=== PATIENT | male | born 1955 | race Caucasian/White ===

== ENCOUNTER 2016-08-01 20:46 | Emergency (ER) | payer MEDICAID ==
[~2016-08-01] VITALS: Ht 188 cm; Wt 88.7 kg
[2016-08-01] MEDS ORDERED: ALBUTEROL/IPRATROPIUM 2.5MG/0.5MG, 3 ML NPPB ONE (21:00)
[2016-08-01] MEDS ORDERED: ALBUTEROL/IPRATROPIUM 2.5MG/0.5MG, 3 ML ONE (21:08)
[2016-08-01 21:37] LABS: BLOOD UREA NITROGEN 11 mg/dL (7-18)
[2016-08-01 21:44] LABS: IS PT STATUS REG ER OR PRE ER? NO
[2016-08-01 22:57] VITALS: BP 105/70
== END 2016-08-01 23:02 | disposition home or self-care (01) ==
LOC: ED 22:50
DX: J20.8 Acute bronchitis due to other specified organisms (principal); B96.89 Other specified bacterial agents as the cause of diseases classified elsewhere; J44.0 Chronic obstructive pulmonary disease with (acute) lower respiratory infection; I10 Essential (primary) hypertension; J98.01 Acute bronchospasm
CPT/HCPCS: 36415; 71010; 80048; 82040; 83880; 84484; 85025; 93005; 94640; J7620; J7512

== ENCOUNTER 2016-09-16 09:34 | Emergency (ER) | payer MEDICAID ==
[~2016-09-16] VITALS: Ht 185.4 cm; Wt 89.9 kg
[2016-09-16] MEDS ORDERED: SODIUM CHLORIDE FLUSH 10ML SYR IVF ONE (10:00)
[2016-09-16 10:41] LABS: BLOOD UREA NITROGEN 26 mg/dL (7-18)
[2016-09-16 10:47] LABS: IS PT STATUS REG ER OR PRE ER? YES
[2016-09-16 10:58] LABS: DIFF TOTAL CELLS COUNTED 100 CELL DIFF
[2016-09-16 11:20] LABS: VERIFY COUNTS? YES
[2016-09-16 11:21] LABS: ANISOCYTOSIS 1+
[2016-09-16 11:22] LABS: LARGE PLATELETS 1+
[2016-09-16 12:02] VITALS: BP 102/65
== END 2016-09-16 12:20 | disposition home or self-care (01) ==
LOC: ED 11:32
DX: S80.812A Abrasion, left lower leg, initial encounter (principal); I50.9 Heart failure, unspecified; D59.9 Acquired hemolytic anemia, unspecified; N28.9 Disorder of kidney and ureter, unspecified; W22.8XXA Striking against or struck by other objects, initial encounter; Y93.01 Activity, walking, marching and hiking; Y92.89 Other specified places as the place of occurrence of the external cause; Y99.8 Other external cause status
CPT/HCPCS: 36415; 71020; 80048; 82040; 83880; 84484; 85025; 93005; 99285

== ENCOUNTER 2016-09-24 23:12 | Emergency (ER) | payer MEDICAID ==
[~2016-09-24] VITALS: Ht 185.4 cm; Wt 94.2 kg
[2016-09-24 23:14] VITALS: BP 115/73
[2016-09-24] MEDS ORDERED: GABA300C10 PO (23:22)
[2016-09-24] MEDS ORDERED: ATEN25TA PO (23:22)
[2016-09-24] MEDS ORDERED: ALBU8.5H3 INH (23:22)
== END 2016-09-25 01:09 | disposition home or self-care (01) ==
LOC: ED 23:59
DX: L03.116 Cellulitis of left lower limb (principal); J44.9 Chronic obstructive pulmonary disease, unspecified; I10 Essential (primary) hypertension; F17.200 Nicotine dependence, unspecified, uncomplicated
CPT/HCPCS: 99283

== ENCOUNTER 2016-10-02 23:54 | Inpatient (IN) | payer MEDICAID ==
[~2016-10-02] VITALS: Ht 188 cm; Wt 89.9 kg
[~2016-10-02 23:54] MED LIST: ALBU8.5H8 INH; ATEN25TA PO; GABA300C10 PO
[2016-10-03] VITALS (9 sets, daily range): BP systolic 91–160; BP diastolic 59–144
[2016-10-03] MEDS ORDERED: ONDANSETRON 2MG/ML, 2ML IVPush ONE (01:00)
[2016-10-03 01:18] LABS: HEMATOCRIT 27.2 % (39.2-51.8); HEMOGLOBIN 8.9 g/dL (13.7-18.0); WHITE BLOOD COUNT 4.2 x10^3/uL (3.4-10)
[2016-10-03 01:47] LABS: ASPARTATE AMINO TRANSFERASE 98 U/L (15-37); BLOOD UREA NITROGEN 21 mg/dL (7-18)
[2016-10-03] MEDS ORDERED: FUROSEMIDE 40 MG/4 ML ONE (01:52)
[2016-10-03 01:53] LABS: IS PT STATUS REG ER OR PRE ER? YES
[2016-10-03] MEDS ORDERED: FUROSEMIDE 40 MG/4 ML IV ONE (02:00)
[2016-10-03] MEDS: MORPHINE SULFATE 4 MG/ML, 1ML IVPush PRN ×2 (02:48→02:57)
[2016-10-03] MEDS ORDERED: MORPHINE SULFATE 4 MG/ML, 1ML ONE ×2 (02:52→08:26)
[2016-10-03] MEDS ORDERED: ONDANSETRON 2MG/ML, 2ML ONE (02:52)
[2016-10-03] MEDS ORDERED: BISACODYL 10 MG SUPP PR PRN ×2 (03:00→13:00)
[2016-10-03] MEDS ORDERED: POLYETHYLENE GLYCOL 17 GM PACKET PO PRN (03:00)
[2016-10-03] MEDS: NICOTINE 21 MG/24 HR PATCH.TD24 TD SCH (03:00)
[2016-10-03] MEDS ORDERED: DOCUSATE 100 MG CAPSULE PO PRN (03:00)
[2016-10-03] MEDS ORDERED: AMPICILLIN/SULBACTAM 3 GM in SODIUM CHLORIDE 0.9% 100 ML IV SCH (03:00)
[2016-10-03] MEDS ORDERED: PROMETHAZINE 25 MG/ML, 1ML IM PRN (03:00)
[2016-10-03] MEDS: ALBUMIN HUMAN 25% 100 ML IV SCH ×3 (05:12→20:19)
[2016-10-03] MEDS ORDERED: OMNIPAQUE 350 MG/ML, 100ML BOTTLE ONE (06:31)
[2016-10-03] MEDS: ONDANSETRON 2MG/ML, 2ML IVPush PRN (08:30)
[2016-10-03] MEDS: morphine SULFATE 10 MG/ML, 1ML IVPush PRN ×2 (08:30→20:45)
[2016-10-03] MEDS: ATENOLOL 25 MG TABLET PO SCH ×2 (09:00→20:35)
[2016-10-03] MEDS: SPIRONOLACTONE 25 MG TABLET PO SCH (09:00)
[2016-10-03] MEDS ORDERED: PANTOPRAZOLE 80 MG in SODIUM CHLORIDE 0.9% 50 ML IV ONE (09:00)
[2016-10-03] MEDS: GABAPENTIN 300 MG CAPSULE PO SCH ×3 (09:00→20:34)
[2016-10-03] MEDS: FUROSEMIDE 40 MG TABLET PO SCH (09:00)
[2016-10-03] MEDS ORDERED: PANTOPRAZOLE 80 MG in SODIUM CHLORIDE 0.9% 100 ML IV SCH (09:00)
[2016-10-03] MEDS ORDERED: PHARMACY MAY ADJ FOR RENAL FX MC PRN (09:30)
[2016-10-03] MEDS: OCTREOTIDE 500 MCG in SODIUM CHLORIDE 0.9% 249 ML IV SCH ×2 (10:47→19:40)
[2016-10-03 10:58] LABS: HEMATOCRIT 23.5 % (39.2-51.8); HEMOGLOBIN 7.6 g/dL (13.7-18.0)
[2016-10-03] MEDS ORDERED: FENTANYL PF 100 MCG/2ML ONE (11:59)
[2016-10-03] MEDS ORDERED: MIDAZOLAM 1 MG/ML, 5ML ONE (12:00)
[2016-10-03] MEDS ORDERED: PROPOFOL 100 ML IV PRN (12:34)
[2016-10-03] MEDS ORDERED: NOREPINEPHRINE 4 MG in SODIUM CHLORIDE 0.9% 246 ML IV PRN (12:34)
[2016-10-03] MEDS ORDERED: FENTANYL PF 100 MCG/2ML IVPush PRN (13:00)
[2016-10-03] MEDS ORDERED: PHARMACY MAY ADJ FOR RENAL FX MC SCH (13:00)
[2016-10-03] MEDS ORDERED: SENNA/DOCUSATE TABLET NG PRN (13:00)
[2016-10-03] MEDS ORDERED: SENNOSIDES 8.8 MG/5 ML ORAL SOL NG PRN (13:00)
[2016-10-03] MEDS ORDERED: LIDOCAINE-MPF 1%, 2ML ENDO PRN (13:00)
[2016-10-03] MEDS ORDERED: ALBUTEROL/IPRATROPIUM 2.5MG/0.5MG, 3 ML INLINE SCH (13:00)
[2016-10-03] MEDS ORDERED: LACTULOSE 20 GM/30 ML UDC NG PRN (13:00)
[2016-10-03] MEDS ORDERED: SODIUM CHLORIDE 0.9% 1,000ML IVBOLUS ONE (13:00)
[2016-10-03] MEDS: PIPERACILLIN/TAZO/PMX 3.375GM 50 ML IV SCH ×3 (13:26→21:00)
[2016-10-03] MEDS ORDERED: METOCLOPRAMIDE 5 MG/ML, 2ML IVPush PRN (13:30)
[2016-10-03 13:34] LABS: ABG COLLECTION SITE RIGHT BRACHIAL; FIO2 50 %
[2016-10-03] MEDS ORDERED: LIDOCAINE 1%, 20ML ONE (13:50)
[2016-10-03 13:56] LABS: FERRITIN 34.1 ng/mL (26-388)
[2016-10-03] MEDS: LINEZOLID PMX 600MG/300ML 300 ML IV SCH ×2 (14:33→22:00)
[2016-10-03 14:51] LABS: CYTOLOGY BODY FLUID RECD INTO PATHOLOGY; CYTOLOGY BODY FLUID SOURCE PERITONEAL FLUID
[2016-10-03] MEDS ORDERED: METOCLOPRAMIDE 5 MG/ML, 2ML IVPush SCH (15:00)
[2016-10-03] MEDS: METOCLOPRAMIDE 5 MG/ML, 2ML IVPush SCH ×2 (16:33→20:45)
[2016-10-03 17:03] LABS: DAU SCREEN DISCLAIMER
[2016-10-03 17:34] LABS: POTASSIUM,URINE RANDOM 42 mmol/L
[2016-10-03 19:20] LABS: HEMATOCRIT 24.3 % (39.2-51.8); HEMOGLOBIN 7.9 g/dL (13.7-18.0); WHITE BLOOD COUNT 3.5 x10^3/uL (3.4-10)
[2016-10-03] MEDS: PANTOPRAZOLE 80 MG in SODIUM CHLORIDE 0.9% 100 ML IV SCH (20:22)
[2016-10-03 22:22] LABS: HEMATOCRIT 24.1 % (39.2-51.8); HEMOGLOBIN 7.9 g/dL (13.7-18.0)
[2016-10-04] MEDS: morphine SULFATE 10 MG/ML, 1ML IVPush PRN ×5 (02:21→17:43)
[2016-10-04] MEDS: NICOTINE 21 MG/24 HR PATCH.TD24 TD SCH (02:23)
[2016-10-04] MEDS: PIPERACILLIN/TAZO/PMX 3.375GM 50 ML IV SCH ×4 (03:55→21:47)
[2016-10-04 04:02] VITALS: BP 96/60
[2016-10-04] MEDS: OCTREOTIDE 500 MCG in SODIUM CHLORIDE 0.9% 249 ML IV SCH ×2 (04:16→13:31)
[2016-10-04 04:30] LABS: HEMOGLOBIN 7.5 g/dL (13.7-18.0); WHITE BLOOD COUNT 2.2 x10^3/uL (3.4-10)
[2016-10-04 04:37] LABS: BLOOD UREA NITROGEN 22 mg/dL (7-18)
[2016-10-04 04:40] LABS: ABG COLLECTION SITE NOT DOCUMENTED
[2016-10-04 04:54] LABS: HEMATOCRIT 22.3 % (39.2-51.8)
[2016-10-04 05:04] LABS: ASPARTATE AMINO TRANSFERASE 59 U/L (15-37); FERRITIN 34.3 ng/mL (26-388); TOTAL IRON BINDING CAPACITY 238 mcg/dL (250-450)
[2016-10-04 05:11] LABS: HIV 1&2 ANTIBODY SCREEN Nonreactive (Nonreactive); HIV-1 p24 ANTIGEN Nonreactive (Nonreactive)
[2016-10-04] MEDS: METOCLOPRAMIDE 5 MG/ML, 2ML IVPush SCH ×4 (06:40→20:41)
[2016-10-04] MEDS: SPIRONOLACTONE 25 MG TABLET PO SCH (07:40)
[2016-10-04] MEDS: GABAPENTIN 300 MG CAPSULE PO SCH ×3 (07:41→20:42)
[2016-10-04] MEDS: FUROSEMIDE 40 MG TABLET PO SCH (07:41)
[2016-10-04] MEDS: ATENOLOL 25 MG TABLET PO SCH ×2 (07:42→20:44)
[2016-10-04] MEDS ORDERED: SUCCINYLCHOLINE 20 MG/ML, 10ML ONE (08:00)
[2016-10-04] MEDS ORDERED: MIDAZOLAM 1 MG/ML, 5ML ONE (08:00)
[2016-10-04] MEDS ORDERED: PROPOFOL 10 MG/ML, 100ML IV ONE (08:00)
[2016-10-04] MEDS: PANTOPRAZOLE 80 MG in SODIUM CHLORIDE 0.9% 100 ML IV SCH ×2 (08:46→17:25)
[2016-10-04] MEDS ORDERED: MAGNESIUM SULFATE PMX 2GM/50ML 50 ML IV ONE (09:00)
[2016-10-04 09:41] VITALS: BP 98/61
[2016-10-04 09:57] VITALS: BP 108/58
[2016-10-04] MEDS: LINEZOLID PMX 600MG/300ML 300 ML IV SCH ×2 (10:24→21:02)
[2016-10-04 11:29] VITALS: BP 105/66
[2016-10-04 14:41] LABS: HEMOGLOBIN 7.5 g/dL (13.7-18.0)
[2016-10-04 14:45] LABS: HEMATOCRIT 22.4 % (39.2-51.8); WHITE BLOOD COUNT 1.5 x10^3/uL (3.4-10)
[2016-10-04 15:14] LABS: DIFF TOTAL CELLS COUNTED 100 CELL DIFF
[2016-10-04 15:18] LABS: ANISOCYTOSIS 1+
[2016-10-04 15:19] LABS: VERIFY COUNTS? YES
[2016-10-04] MEDS ORDERED: IRON DEXTRAN IV PER PHARMACY IV ONE (18:00)
[2016-10-04] MEDS ORDERED: EPINEPHRINE 1 MG/ML, 1ML IV PRN (18:00)
[2016-10-04] MEDS ORDERED: IRON DEXTRAN COMPLEX 25 MG in SODIUM CHLORIDE 0.9% 50 ML IV ONE (18:30)
[2016-10-04] MEDS ORDERED: IRON DEXTRAN COMPLEX IV ONE (20:00)
[2016-10-04] MEDS ORDERED: SODIUM CHLORIDE 0.9% IV ONE (20:00)
[2016-10-04] MEDS: OXYcodone IR 5MG TABLET PO PRN (20:42)
[2016-10-04 21:12] LABS: HEMOGLOBIN 7.8 g/dL (13.7-18.0)
[2016-10-04 21:39] VITALS: BP 104/65
[2016-10-05] MEDS: OCTREOTIDE 500 MCG in SODIUM CHLORIDE 0.9% 249 ML IV SCH ×2 (00:55→12:09)
[2016-10-05] MEDS: OXYcodone IR 5MG TABLET PO PRN ×5 (01:05→20:31)
[2016-10-05 01:06] VITALS: BP 106/71
[2016-10-05] MEDS: NICOTINE 21 MG/24 HR PATCH.TD24 TD SCH (03:00)
[2016-10-05] MEDS: PIPERACILLIN/TAZO/PMX 3.375GM 50 ML IV SCH ×3 (04:07→18:14)
[2016-10-05] MEDS: PANTOPRAZOLE 80 MG in SODIUM CHLORIDE 0.9% 100 ML IV SCH (04:07)
[2016-10-05 05:12] LABS: HEMATOCRIT 23.9 % (39.2-51.8); WHITE BLOOD COUNT 2.3 x10^3/uL (3.4-10)
[2016-10-05 05:20] LABS: BLOOD UREA NITROGEN 15 mg/dL (7-18)
[2016-10-05 05:43] LABS: DIFF TOTAL CELLS COUNTED 100 CELL DIFF
[2016-10-05 05:45] LABS: ANISOCYTOSIS 1+; LARGE PLATELETS 1+; VERIFY COUNTS? YES
[2016-10-05 05:46] LABS: POLYCHROMASIA 1+
[2016-10-05 07:24] VITALS: BP 119/77
[2016-10-05] MEDS: FUROSEMIDE 40 MG TABLET PO SCH (08:49)
[2016-10-05] MEDS: GABAPENTIN 300 MG CAPSULE PO SCH ×3 (08:49→20:31)
[2016-10-05] MEDS: ATENOLOL 25 MG TABLET PO SCH (08:49)
[2016-10-05] MEDS: SPIRONOLACTONE 25 MG TABLET PO SCH (08:49)
[2016-10-05] MEDS: LINEZOLID PMX 600MG/300ML 300 ML IV SCH ×2 (09:43→20:39)
[2016-10-05] MEDS: PANTOPRAZOLE 40 MG IV IVPush SCH (12:08)
[2016-10-05 14:21] VITALS: BP 105/67
[2016-10-05 18:37] VITALS: BP 99/63
[2016-10-06] MEDS: PANTOPRAZOLE 40 MG IV IVPush SCH (00:19)
[2016-10-06] MEDS: PIPERACILLIN/TAZO/PMX 3.375GM 50 ML IV SCH ×4 (00:19→22:16)
[2016-10-06 00:58] VITALS: BP 106/69
[2016-10-06] MEDS: OXYcodone IR 5MG TABLET PO PRN ×5 (01:06→22:17)
[2016-10-06] MEDS: OCTREOTIDE 500 MCG in SODIUM CHLORIDE 0.9% 249 ML IV SCH ×2 (02:27→14:59)
[2016-10-06] MEDS: NICOTINE 21 MG/24 HR PATCH.TD24 TD SCH (02:27)
[2016-10-06 04:41] LABS: BLOOD UREA NITROGEN 11 mg/dL (7-18)
[2016-10-06 05:29] LABS: HEMATOCRIT 24.1 % (39.2-51.8); HEMOGLOBIN 8.1 g/dL (13.7-18.0)
[2016-10-06 05:34] LABS: WHITE BLOOD COUNT 1.9 x10^3/uL (3.4-10)
[2016-10-06 06:00] LABS: DIFF TOTAL CELLS COUNTED 100 CELL DIFF
[2016-10-06 06:04] LABS: ANISOCYTOSIS 1+; POLYCHROMASIA 1+; VERIFY COUNTS? YES
[2016-10-06 07:11] VITALS: BP 106/70
[2016-10-06] MEDS ORDERED: MAGNESIUM SULFATE PMX 2GM/50ML 50 ML IV ONE ×2 (09:00→20:00)
[2016-10-06] MEDS ORDERED: GADOBUTROL 10 MMOL/10 ML VIAL ONE (10:25)
[2016-10-06] MEDS: POTASSIUM ACID PHOSPHATE 500 MG TABLET.SOL PO SCH ×3 (10:57→22:16)
[2016-10-06] MEDS: SPIRONOLACTONE 100 MG TABLET PO SCH (10:57)
[2016-10-06] MEDS: GABAPENTIN 300 MG CAPSULE PO SCH ×3 (10:58→22:16)
[2016-10-06] MEDS: FUROSEMIDE 40 MG TABLET PO SCH (10:58)
[2016-10-06] MEDS: PANTOPROZOLE 40MG TABLET PO SCH ×2 (11:27→22:17)
[2016-10-06 12:56] VITALS: BP 103/63
[2016-10-06 18:45] VITALS: BP 109/66
[2016-10-07 01:44] VITALS: BP 109/66
[2016-10-07] MEDS: NICOTINE 21 MG/24 HR PATCH.TD24 TD SCH (02:40)
[2016-10-07] MEDS: PIPERACILLIN/TAZO/PMX 3.375GM 50 ML IV SCH ×4 (04:12→21:34)
[2016-10-07] MEDS: OXYcodone IR 5MG TABLET PO PRN ×4 (05:15→21:37)
[2016-10-07 05:45] LABS: BLOOD UREA NITROGEN 11 mg/dL (7-18)
[2016-10-07 05:50] LABS: HEMATOCRIT 24.6 % (39.2-51.8)
[2016-10-07 05:57] LABS: WHITE BLOOD COUNT 1.6 x10^3/uL (3.4-10)
[2016-10-07 06:27] LABS: DIFF TOTAL CELLS COUNTED 100 CELL DIFF
[2016-10-07 06:45] LABS: ANISOCYTOSIS 1+; VERIFY COUNTS? YES
[2016-10-07 08:42] VITALS: BP 111/82
[2016-10-07] MEDS: GABAPENTIN 300 MG CAPSULE PO SCH ×3 (09:36→21:33)
[2016-10-07] MEDS: SPIRONOLACTONE 100 MG TABLET PO SCH (09:36)
[2016-10-07] MEDS: PANTOPROZOLE 40MG TABLET PO SCH ×2 (09:36→21:33)
[2016-10-07] MEDS: POTASSIUM ACID PHOSPHATE 500 MG TABLET.SOL PO SCH (09:36)
[2016-10-07] MEDS: FUROSEMIDE 40 MG TABLET PO SCH (09:37)
[2016-10-07] MEDS: POTASSIUM CHLORIDE 20 MEQ TAB.ER.PRT PO SCH ×2 (11:00→16:40)
[2016-10-07 16:28] VITALS: BP 129/83
[2016-10-07 20:00] VITALS: BP 124/79
[2016-10-08 02:00] VITALS: BP 128/80
[2016-10-08] MEDS: NICOTINE 21 MG/24 HR PATCH.TD24 TD SCH (03:00)
[2016-10-08 03:49] LABS: HEMATOCRIT 25.9 % (39.2-51.8); HEMOGLOBIN 8.4 g/dL (13.7-18.0); WHITE BLOOD COUNT 2.3 x10^3/uL (3.4-10)
[2016-10-08 04:00] LABS: BLOOD UREA NITROGEN 11 mg/dL (7-18)
[2016-10-08] MEDS: PIPERACILLIN/TAZO/PMX 3.375GM 50 ML IV SCH ×4 (05:22→22:24)
[2016-10-08] MEDS: OXYcodone IR 5MG TABLET PO PRN ×3 (05:23→22:26)
[2016-10-08 08:00] VITALS: BP 137/89
[2016-10-08] MEDS: SPIRONOLACTONE 100 MG TABLET PO SCH (09:18)
[2016-10-08] MEDS: POTASSIUM CHLORIDE 20 MEQ TAB.ER.PRT PO SCH ×2 (09:18→16:36)
[2016-10-08] MEDS: FUROSEMIDE 40 MG TABLET PO SCH (09:18)
[2016-10-08] MEDS: PANTOPROZOLE 40MG TABLET PO SCH ×2 (09:18→20:45)
[2016-10-08] MEDS: GABAPENTIN 300 MG CAPSULE PO SCH ×3 (09:18→20:45)
[2016-10-08 14:15] VITALS: BP 117/86
[2016-10-08] MEDS: ONDANSETRON 2MG/ML, 2ML IVPush PRN (16:36)
[2016-10-08 19:21] VITALS: BP 108/76
[2016-10-08 19:32] VITALS: BP 112/77
[2016-10-09] MEDS: NICOTINE 21 MG/24 HR PATCH.TD24 TD SCH (03:00)
[2016-10-09 04:00] VITALS: BP 117/83
[2016-10-09] MEDS: PIPERACILLIN/TAZO/PMX 3.375GM 50 ML IV SCH ×4 (04:41→23:04)
[2016-10-09] MEDS: OXYcodone IR 5MG TABLET PO PRN ×4 (04:43→21:23)
[2016-10-09 06:11] LABS: HEMATOCRIT 23.6 % (39.2-51.8); HEMOGLOBIN 7.9 g/dL (13.7-18.0); WHITE BLOOD COUNT 6.9 x10^3/uL (3.4-10)
[2016-10-09 06:20] LABS: BLOOD UREA NITROGEN 18 mg/dL (7-18)
[2016-10-09 07:11] VITALS: BP 113/74
[2016-10-09] MEDS: GABAPENTIN 300 MG CAPSULE PO SCH ×3 (08:13→21:00)
[2016-10-09] MEDS: PANTOPROZOLE 40MG TABLET PO SCH ×2 (08:13→21:03)
[2016-10-09] MEDS: FUROSEMIDE 40 MG TABLET PO SCH (08:13)
[2016-10-09] MEDS: SPIRONOLACTONE 100 MG TABLET PO SCH (08:13)
[2016-10-09] MEDS: POTASSIUM CHLORIDE 20 MEQ TAB.ER.PRT PO SCH ×2 (08:13→17:22)
[2016-10-09 13:53] VITALS: BP 114/74
[2016-10-09] MEDS ORDERED: ALBUMIN HUMAN 25% 100 ML IV SCH (14:00)
[2016-10-09] MEDS ORDERED: LIDOCAINE 1%, 20ML ONE (15:43)
[2016-10-09 17:41] LABS: CYTOLOGY BODY FLUID RECD INTO PATHOLOGY; CYTOLOGY BODY FLUID SOURCE PERITONEAL FLUID
[2016-10-09 20:20] VITALS: BP 135/72
[2016-10-09] MEDS: ALBUMIN HUMAN 25% 100 ML IV SCH (23:00)
[2016-10-10] VITALS (11 sets, daily range): BP systolic 94–111; BP diastolic 53–74
[2016-10-10] MEDS: NICOTINE 21 MG/24 HR PATCH.TD24 TD SCH (00:29)
[2016-10-10] MEDS: OXYcodone IR 5MG TABLET PO PRN ×4 (02:06→20:01)
[2016-10-10] MEDS: PIPERACILLIN/TAZO/PMX 3.375GM 50 ML IV SCH ×3 (05:29→21:41)
[2016-10-10] MEDS: ALBUMIN HUMAN 25% 100 ML IV SCH ×3 (05:30→17:05)
[2016-10-10 05:40] LABS: BLOOD UREA NITROGEN 26 mg/dL (7-18)
[2016-10-10 06:02] LABS: HEMATOCRIT 15.5 % (39.2-51.8); HEMOGLOBIN 5.2 g/dL (13.7-18.0); WHITE BLOOD COUNT 4.3 x10^3/uL (3.4-10)
[2016-10-10] MEDS: FUROSEMIDE 40 MG TABLET PO SCH (08:31)
[2016-10-10] MEDS: PANTOPROZOLE 40MG TABLET PO SCH ×2 (08:31→20:01)
[2016-10-10] MEDS: SPIRONOLACTONE 100 MG TABLET PO SCH (08:31)
[2016-10-10] MEDS: POTASSIUM CHLORIDE 20 MEQ TAB.ER.PRT PO SCH ×2 (08:31→17:05)
[2016-10-10] MEDS: GABAPENTIN 300 MG CAPSULE PO SCH ×4 (08:31→20:02)
[2016-10-10] MEDS ORDERED: MAGNESIUM SULFATE PMX 2GM/50ML 50 ML IV ONE ×2 (10:30)
[2016-10-10 23:39] LABS: HEMATOCRIT 21.8 % (39.2-51.8)
[2016-10-11] VITALS (12 sets, daily range): BP systolic 103–123; BP diastolic 61–78
[2016-10-11] MEDS: ALBUMIN HUMAN 25% 100 ML IV SCH (00:09)
[2016-10-11] MEDS: OXYcodone IR 5MG TABLET PO PRN ×6 (00:19→22:06)
[2016-10-11] MEDS: NICOTINE 21 MG/24 HR PATCH.TD24 TD SCH (03:00)
[2016-10-11] MEDS: PIPERACILLIN/TAZO/PMX 3.375GM 50 ML IV SCH ×2 (04:02→09:34)
[2016-10-11 05:15] LABS: WHITE BLOOD COUNT 3.2 x10^3/uL (3.4-10)
[2016-10-11 05:17] LABS: HEMATOCRIT 19.2 % (39.2-51.8); HEMOGLOBIN 6.5 g/dL (13.7-18.0)
[2016-10-11 05:26] LABS: BLOOD UREA NITROGEN 24 mg/dL (7-18)
[2016-10-11 05:31] LABS: ASPARTATE AMINO TRANSFERASE 46 U/L (15-37)
[2016-10-11 06:12] LABS: DIFF TOTAL CELLS COUNTED 100 CELL DIFF
[2016-10-11 06:14] LABS: VERIFY COUNTS? YES
[2016-10-11 06:15] LABS: ANISOCYTOSIS 1+; MICROCYTOSIS 1+; POLYCHROMASIA 1+
[2016-10-11] MEDS: POTASSIUM CHLORIDE 20 MEQ TAB.ER.PRT PO SCH ×2 (07:51→17:40)
[2016-10-11] MEDS: morphine SULFATE 10 MG/ML, 1ML IVPush PRN ×2 (07:52→11:35)
[2016-10-11] MEDS: FUROSEMIDE 40 MG TABLET PO SCH (08:01)
[2016-10-11] MEDS: GABAPENTIN 300 MG CAPSULE PO SCH ×3 (08:01→20:16)
[2016-10-11] MEDS: PANTOPROZOLE 40MG TABLET PO SCH ×2 (08:01→20:16)
[2016-10-11] MEDS: SPIRONOLACTONE 100 MG TABLET PO SCH (08:01)
[2016-10-11] MEDS: ONDANSETRON 2MG/ML, 2ML IVPush PRN (09:35)
[2016-10-11] MEDS ORDERED: FUROSEMIDE 20 MG/2 ML IV ONE (10:30)
[2016-10-11] MEDS: CEFOTETAN PMX 2GM/50ML 50 ML IV SCH ×2 (11:00→22:05)
[2016-10-12] MEDS: OXYcodone IR 5MG TABLET PO PRN ×4 (02:05→21:14)
[2016-10-12 02:09] VITALS: BP 106/64
[2016-10-12] MEDS: NICOTINE 21 MG/24 HR PATCH.TD24 TD SCH (03:00)
[2016-10-12 06:10] LABS: HEMATOCRIT 28.7 % (39.2-51.8); HEMOGLOBIN 9.6 g/dL (13.7-18.0); WHITE BLOOD COUNT 4.3 x10^3/uL (3.4-10)
[2016-10-12 06:21] LABS: BLOOD UREA NITROGEN 23 mg/dL (7-18)
[2016-10-12 07:05] VITALS: BP 122/71
[2016-10-12] MEDS: SPIRONOLACTONE 100 MG TABLET PO SCH (08:19)
[2016-10-12] MEDS: FUROSEMIDE 40 MG TABLET PO SCH (08:19)
[2016-10-12] MEDS: POTASSIUM CHLORIDE 20 MEQ TAB.ER.PRT PO SCH ×2 (08:19→17:22)
[2016-10-12] MEDS: PANTOPROZOLE 40MG TABLET PO SCH ×2 (08:19→21:14)
[2016-10-12] MEDS: GABAPENTIN 300 MG CAPSULE PO SCH ×4 (08:19→20:26)
[2016-10-12] MEDS: CEFOTETAN PMX 2GM/50ML 50 ML IV SCH ×2 (10:14→22:38)
[2016-10-12] MEDS ORDERED: MAGNESIUM SULFATE PMX 2GM/50ML 50 ML IV ONE (10:30)
[2016-10-12] MEDS: morphine SULFATE 10 MG/ML, 1ML IVPush PRN ×2 (11:37→23:09)
[2016-10-12 15:28] VITALS: BP 109/71
[2016-10-12 20:55] VITALS: BP 121/82
[2016-10-12] MEDS ORDERED: MORPHINE SULFATE 4 MG/ML, 1ML ONE (23:05)
[2016-10-13] MEDS: OXYcodone IR 5MG TABLET PO PRN ×5 (01:26→21:59)
[2016-10-13 02:16] VITALS: BP 121/77
[2016-10-13] MEDS: NICOTINE 21 MG/24 HR PATCH.TD24 TD SCH (03:00)
[2016-10-13 06:18] LABS: HEMOGLOBIN 10.1 g/dL (13.7-18.0)
[2016-10-13 06:21] LABS: BLOOD UREA NITROGEN 21 mg/dL (7-18)
[2016-10-13 08:14] VITALS: BP 125/80
[2016-10-13] MEDS: SPIRONOLACTONE 100 MG TABLET PO SCH (08:21)
[2016-10-13] MEDS: POTASSIUM CHLORIDE 20 MEQ TAB.ER.PRT PO SCH ×2 (08:21→18:09)
[2016-10-13] MEDS: PANTOPROZOLE 40MG TABLET PO SCH ×2 (08:21→20:02)
[2016-10-13] MEDS: GABAPENTIN 300 MG CAPSULE PO SCH ×3 (08:22→19:56)
[2016-10-13] MEDS: FUROSEMIDE 40 MG TABLET PO SCH (08:22)
[2016-10-13] MEDS: morphine SULFATE 10 MG/ML, 1ML IVPush PRN ×2 (08:47→18:17)
[2016-10-13] MEDS: ONDANSETRON 2MG/ML, 2ML IVPush PRN (08:47)
[2016-10-13] MEDS: CEFOTETAN PMX 2GM/50ML 50 ML IV SCH ×2 (10:23→21:58)
[2016-10-13 13:17] VITALS: BP 112/77
[2016-10-13] MEDS ORDERED: FUROSEMIDE 20 MG/2 ML IV ONE (18:30)
[2016-10-13] MEDS ORDERED: FUROSEMIDE 20 MG/2 ML ONE (19:47)
[2016-10-13 20:06] VITALS: BP 117/72
[2016-10-14] MEDS: OXYcodone IR 5MG TABLET PO PRN ×5 (02:05→21:17)
[2016-10-14 02:53] VITALS: BP 121/87
[2016-10-14] MEDS: NICOTINE 21 MG/24 HR PATCH.TD24 TD SCH (03:00)
[2016-10-14 05:54] LABS: HEMATOCRIT 31.7 % (39.2-51.8); HEMOGLOBIN 10.4 g/dL (13.7-18.0); WHITE BLOOD COUNT 5.7 x10^3/uL (3.4-10)
[2016-10-14 06:04] LABS: BLOOD UREA NITROGEN 21 mg/dL (7-18)
[2016-10-14 06:20] LABS: DIFF TOTAL CELLS COUNTED 100 CELL DIFF
[2016-10-14 06:23] LABS: ANISOCYTOSIS 1+; VERIFY COUNTS? YES
[2016-10-14 08:07] VITALS: BP 145/76
[2016-10-14] MEDS: GABAPENTIN 300 MG CAPSULE PO SCH ×3 (09:00→21:00)
[2016-10-14] MEDS: morphine SULFATE 10 MG/ML, 1ML IVPush PRN (10:08)
[2016-10-14] MEDS: FUROSEMIDE 40 MG TABLET PO SCH (10:09)
[2016-10-14] MEDS: POTASSIUM CHLORIDE 20 MEQ TAB.ER.PRT PO SCH ×2 (10:09→16:57)
[2016-10-14] MEDS: SPIRONOLACTONE 100 MG TABLET PO SCH (10:09)
[2016-10-14] MEDS: PANTOPROZOLE 40MG TABLET PO SCH ×2 (10:09→21:17)
[2016-10-14] MEDS: CHOLECALCIFEROL 1,000 UNIT TABLET PO SCH (10:09)
[2016-10-14] MEDS: CEFOTETAN PMX 2GM/50ML 50 ML IV SCH ×2 (10:09→22:38)
[2016-10-14 13:40] VITALS: BP 122/71
[2016-10-14 19:20] VITALS: BP 117/84
[2016-10-15] MEDS: morphine SULFATE 10 MG/ML, 1ML IVPush PRN ×2 (00:42→10:42)
[2016-10-15 02:32] VITALS: BP 130/89
[2016-10-15] MEDS: NICOTINE 21 MG/24 HR PATCH.TD24 TD SCH (03:00)
[2016-10-15] MEDS: OXYcodone IR 5MG TABLET PO PRN ×4 (03:54→16:53)
[2016-10-15 04:31] LABS: BLOOD UREA NITROGEN 20 mg/dL (7-18)
[2016-10-15 04:44] LABS: DIFF TOTAL CELLS COUNTED 100 CELL DIFF; HEMATOCRIT 31.4 % (39.2-51.8); HEMOGLOBIN 10.4 g/dL (13.7-18.0); WHITE BLOOD COUNT 4.9 x10^3/uL (3.4-10)
[2016-10-15 04:47] LABS: ANISOCYTOSIS 1+; VERIFY COUNTS? YES
[2016-10-15 07:44] VITALS: BP 141/88
[2016-10-15] MEDS: POTASSIUM CHLORIDE 20 MEQ TAB.ER.PRT PO SCH ×2 (08:31→16:52)
[2016-10-15] MEDS: SPIRONOLACTONE 100 MG TABLET PO SCH (08:32)
[2016-10-15] MEDS: CHOLECALCIFEROL 1,000 UNIT TABLET PO SCH (08:32)
[2016-10-15] MEDS: PANTOPROZOLE 40MG TABLET PO SCH (08:32)
[2016-10-15] MEDS: GABAPENTIN 300 MG CAPSULE PO SCH ×2 (08:32→16:00)
[2016-10-15] MEDS: FUROSEMIDE 40 MG TABLET PO SCH (08:32)
[2016-10-15] MEDS ORDERED: LIDOCAINE 1%, 20ML ONE (10:32)
[2016-10-15] MEDS ORDERED: FLUMAZENIL 0.1 MG/1 ML, 5ML ONE (10:33)
[2016-10-15] MEDS ORDERED: NALOXONE 1 MG/ML, 2ML ONE (10:33)
[2016-10-15] MEDS ORDERED: FENTANYL PF 100 MCG/2ML ONE (10:33)
[2016-10-15] MEDS ORDERED: MIDAZOLAM 1 MG/ML, 5ML ONE ×2 (10:33)
[2016-10-15] MEDS: CEFOTETAN PMX 2GM/50ML 50 ML IV SCH (10:35)
[2016-10-15] MEDS ORDERED: GABA300C10 PO (12:09)
[2016-10-15] MEDS ORDERED: LACT20SO13 NG (12:09)
[2016-10-15] MEDS ORDERED: SPIR100T PO (12:09)
[2016-10-15] MEDS ORDERED: MULT-412 PO (12:09)
[2016-10-15] MEDS ORDERED: PANT40TA5 PO (12:09)
[2016-10-15] MEDS ORDERED: POTA20TA6 PO (12:09)
[2016-10-15] MEDS ORDERED: CHOL200040 PO (12:09)
[2016-10-15] MEDS ORDERED: FURO40TA6 PO (12:09)
[2016-10-15 12:35] VITALS: BP 127/79
[2016-10-17 18:22] LABS: PPD INJECT PLACED
== END 2016-10-15 17:25 | disposition hospice, inpatient (51) | DRG 368 ==
LOC: ED 23:59 → EDIP 10-03 02:10 → SUATTDRO 10-03 02:36 → 4EST 10-03 03:21 → CCU 10-03 11:12 → 4EST 10-04 21:40
PROC: 5A1935Z Respiratory Ventilation, Less than 24 Consecutive Hours (ICD-10-PCS; 2016-10-03)
PROC: 0BH17EZ Insertion of Endotracheal Airway into Trachea, Via Natural or Artificial Opening (ICD-10-PCS; 2016-10-03)
PROC: 30233N1 Transfusion of Nonautologous Red Blood Cells into Peripheral Vein, Percutaneous Approach (ICD-10-PCS; 2016-10-03)
PROC: 0W9G3ZZ Drainage of Peritoneal Cavity, Percutaneous Approach (ICD-10-PCS; 2016-10-03)
PROC: 02HV33Z Insertion of Infusion Device into Superior Vena Cava, Percutaneous Approach (ICD-10-PCS; 2016-10-03)
PROC: B548ZZA Ultrasonography of Superior Vena Cava, Guidance (ICD-10-PCS; 2016-10-03)
PROC: 06L34CZ Occlusion of Esophageal Vein with Extraluminal Device, Percutaneous Endoscopic Approach (ICD-10-PCS; principal; 2016-10-03 11:30)
PROC: 30233R1 Transfusion of Nonautologous Platelets into Peripheral Vein, Percutaneous Approach (ICD-10-PCS; 2016-10-04)
PROC: 0W9G3ZZ Drainage of Peritoneal Cavity, Percutaneous Approach (ICD-10-PCS; 2016-10-09)
PROC: 30233N1 Transfusion of Nonautologous Red Blood Cells into Peripheral Vein, Percutaneous Approach (ICD-10-PCS; 2016-10-10)
PROC: 30233N1 Transfusion of Nonautologous Red Blood Cells into Peripheral Vein, Percutaneous Approach (ICD-10-PCS; 2016-10-11)
DX: I85.00 Esophageal varices without bleeding (principal); E43 Unspecified severe protein-calorie malnutrition; N17.0 Acute kidney failure with tubular necrosis; D61.818 Other pancytopenia; D68.9 Coagulation defect, unspecified; C22.0 Liver cell carcinoma; K76.6 Portal hypertension; K92.0 Hematemesis; I13.0 Hypertensive heart and chronic kidney disease with heart failure and stage 1 through stage 4 chronic kidney disease, or unspecified chronic kidney disease; I50.9 Heart failure, unspecified; E87.1 Hypo-osmolality and hyponatremia; L03.116 Cellulitis of left lower limb; D62 Acute posthemorrhagic anemia; E11.22 Type 2 diabetes mellitus with diabetic chronic kidney disease; K72.90 Hepatic failure, unspecified without coma; B18.2 Chronic viral hepatitis C; F10.20 Alcohol dependence, uncomplicated; K31.89 Other diseases of stomach and duodenum; N18.9 Chronic kidney disease, unspecified; G62.9 Polyneuropathy, unspecified; K70.31 Alcoholic cirrhosis of liver with ascites; F17.210 Nicotine dependence, cigarettes, uncomplicated; K70.11 Alcoholic hepatitis with ascites; R16.1 Splenomegaly, not elsewhere classified; K80.20 Calculus of gallbladder without cholecystitis without obstruction; R09.02 Hypoxemia; E55.9 Vitamin D deficiency, unspecified; F12.90 Cannabis use, unspecified, uncomplicated; I25.10 Atherosclerotic heart disease of native coronary artery without angina pectoris; K21.9 Gastro-esophageal reflux disease without esophagitis; Z51.5 Encounter for palliative care; Z59.0 Homelessness; Z68.25 Body mass index [BMI] 25.0-25.9, adult
CPT/HCPCS: 36415; 36569; 36600; 49083; 49418; 71010; 71275; 74183; 76700; 76937; 77001; 80048; 80053; 80074; 80307; 81003; 82042; 82105; 82140; 82306; 82436; 82570; 82607; 82728; 82746; 82803; 83540; 83550; 83690; 83735; 83880; 84100; 84133; 84157; 84300; 84478; 84484; 85014; 85018; 85025; 85384; 85610; 86580; 86703; 86850; 86900; 86923; 87070; 87075; 87081; 87205; 87324; 87521; 87899; 88112; 88305; 89051; 93005; 93308; 93321; 93325; 93970; 94002; 94150; 96374; 96375; 99156; 99157; A9585; J0295; J1750; J1940; J2020; J2250; J2354; J2405; J2543; J2550; J2704; J3010; J3490; P9047; Q9967; C1729; C1751; C9113; G0435; J0330; J2270; J2310; J2765; J3475; J7030; J7050; P9016; P9035; S0074